=== PATIENT | male | born 1965 | race Asian ===

== ENCOUNTER → 2020-06-24 | Outpatient (CLI) | payer MEDICARE | END | disposition home or self-care (01) | LOC: RADPV 10:42 | PROVIDERS: ATTEND Internal Medicine Geriatric Medicine | DX: M65.812 Other synovitis and tenosynovitis, left shoulder (principal); Z98.1 Arthrodesis status | CPT/HCPCS: 72040; 73030-TC ==

== ENCOUNTER → 2023-02-20 | Outpatient (CLI) | payer MEDICARE | END | disposition home or self-care (01) | LOC: RADMN 11:36 | PROVIDERS: ATTEND Internal Medicine Geriatric Medicine | DX: M47.815 Spondylosis without myelopathy or radiculopathy, thoracolumbar region (principal); G95.89 Other specified diseases of spinal cord; M47.818 Spondylosis without myelopathy or radiculopathy, sacral and sacrococcygeal region; M54.9 Dorsalgia, unspecified | CPT/HCPCS: 72100 ==